=== PATIENT | male | born 1955 | race Caucasian/White ===

== ENCOUNTER 2018-01-04 09:00 | Inpatient (IN) ==
[2018-01-11] MEDS ORDERED: Chlorhexidine Gluconate 2% 1 Pack (2 Cloths) TOPICAL ONE (06:30)
[2018-01-11] MEDS ORDERED: Sodium Chlor 0.9% Inj 40 ML, Bupivacaine Liposo PF 1.3% Inj 20 ML P-ARTICULR SCH ×2 (06:30)
[2018-01-11] MEDS ORDERED: Metoprolol Tartrate 25 MG Tablet PO ONE (06:30)
[2018-01-11] MEDS ORDERED: Chlorhexidine 4% Topical 120 APPLIC/120 ML Bottle TOPICAL SCH (06:30)
[2018-01-11] MEDS ORDERED: Sodium Chlor 0.9% Inj 500 ML IV.CONT ONE (06:30)
[2018-01-11] MEDS ORDERED: Bupivacaine/Epinephrine Inj 0.25% 50 ML Vial ONE (06:51)
[2018-01-11] MEDS ORDERED: Tranexamic Acid Inj 925 MG in Sodium Chlor 0.9% Inj 100 ML IV.SIG SCH (07:00)
[2018-01-11] MEDS ORDERED: ceFAZolin 2 GM Premix Inj 2 GM/50 ML PIGGYBACK IV.SIG SCH (07:00)
[2018-01-11] MEDS ORDERED: Vancomycin Inj 1,000 MG in Sodium Chlor 0.9% Inj 250 ML IV.SIG SCH (07:00)
[2018-01-11] MEDS ORDERED: Lidocaine PF 1% Inj 5 ML Syringe OTHER ONE (07:25)
[2018-01-11] MEDS ORDERED: Glycopyrrolate Inj 1 MG/5 ML Syringe IV.PUSH ONE (07:25)
[2018-01-11] MEDS ORDERED: Ketorolac Inj 30 MG/ML (IVP) Vial IV.PUSH ONE (07:25)
[2018-01-11] MEDS ORDERED: Neostigmine Inj 5 MG/5 ML Syringe IV.PUSH ONE (07:25)
[2018-01-11] MEDS ORDERED: Morphine Inj 4 MG/ML Vial IV.PUSH PRN (07:43)
[2018-01-11] MEDS ORDERED: Post-op Orders (for Pharmacy) OTHER STA (07:43)
[2018-01-11] MEDS ORDERED: Bisacodyl 10 MG Supp RECTAL PRN (07:43)
--- NOTE | 2018-01-11 09:26 | XR ---
EXAM DATE: 01/11/2018 12:00 AM EDT AGE/SEX: 62 years / Male INDICATIONS: Left total hip replacement. CLINICAL DATA: This is the patient's initial encounter. Patient reports that signs and symptoms have been present for 1 day and indicates a pain score of Nonresponsive. MEDICAL/SURGICAL HISTORY: None. . Right total hip replacement. COMPARISON: No prior exams available for comparison. FINDINGS: 2 fluoroscopic images demonstrate left hip arthroplasty in place. The arthroplasty components appear well-positioned and in anatomic alignment. No gross bony fracture. CONCLUSION: 1. Left hip arthroplasty in anatomic alignment without fracture. Electronically signed by: Narinder Tucker MD 01/11/2018 9:25 AM EDT
--- NOTE | 2018-01-11 09:31 | P.OP ---
- Preoperative Diagnosis (1) Osteoarthritis of left hip - Postoperative Diagnosis (1) Osteoarthritis of left hip Date of procedure: 01/11/18 Procedure: Left total hip replacement arthroplasty, direct anterior exposure Anesthesia: GETA Surgeon: Arturo Allen MD Janitorial Assistant: TUTU Tuttle Operation and Findings: EBL: 500 cc INDICATION: This patient is a 62-year-old male with severe osteoarthritis of the left hip. Despite extensive conservative care, he continues to be painful and symptomatic. He now presents for surgical treatment NOTE: Meera Tuttle PA-C was present for the entire surgical procedure as my client services assistant. In my medical opinion her skill and care was necessary for the proper management of this patient. COMPONENTS: COMPANY: [employer] CUP: [place], 56 mm, 100 series STEM: [place], size 12, high offset HEAD: Ceramic, +8.5, 36 mm, 12/14 taper PLASTIC: Altrex, 36 mm, neutral PROCEDURE: This patient was brought to the operating room and anesthetized in the supine position. The patient was positioned on the [place] table with the operative leg extended and the contralateral leg held position. The hip and leg was scrubbed with alcohol followed by Hibiclens followed by ChloraPrep and draped sterilely in the clean air suite. Preoperative fluoroscopic images were utilized. A templating x-ray was obtained and printed to be used during the case. A timeout was done and antibiotics were given within a routine time window. A 4 inch incision was made starting 2 cm distal and 2 cm lateral to the anterior superior iliac spine. The tensor fascia allyson fascia was identified and opened longitudinally in line with the incision. Deep retraction allowed good visualization in the interval between the tensor fascia allyson and the rectus and this was opened further. The posterior fascia was opened. Crossing vessels were coagulated appropriately. The anterior aspect of the hip capsule was identified. Retractors were placed above and below the capsule. The capsule was opened longitudinally. Stay sutures were utilized creating flaps for the anterior capsule. The femoral neck was cut at the right location and completed with an oscillating saw. The head and neck was removed and taken to the back table. The leg was externally rotated 60 degrees and traction placed on the extremity. The labrum was excised. A portion of the capsule was excised. Visibility was excellent. Retractors were positioned. Starting 6 mm from the final size reamer, we began reaming up to 1 mm from the anticipated size. This was visualized under fluoroscopy. A trial cup was positioned. This also was visualized under fluoroscopy and minor adjustments were made. The final preparation with a 56 reamer was utilized. The final cup was positioned in approximately 40 degrees of abduction and 20 degrees of forward flexion. This is visualized under fluoroscopy and was seated into the final position. Position was very satisfactory. A single hole eliminator was positioned followed by the plastic liner. The final solution was excellent. Traction was let off. The leg was brought into neutral rotation. A lifting took was positioned underneath the greater trochanter and proximal femur. The leg was maximally X rotated and the foot drop to the floor across midline. Retractors were positioned. A box osteotome was used to gain entrance into the top of the femur. The canal was probed with a finder to ensure that we are within the canal. Successive broaching up to the final stem size was accomplished. Trial reduction showed excellent balancing. Adjustments were made. The wound was irrigated copiously and the canal irrigated. The final stem was inserted in proper orientation. Trial again was trialed and the final head side was impacted. The hip was reduced and with 60 degrees of external rotation the leg to be dropped to the floor without evidence of anterior subluxation. Intraoperative x-rays were obtained. Local anesthesia was utilized for a field block including posterior capsule, inferior capsule, cephalad capsule, region of the greater trochanter, tensor fascia allyson and subcutaneous tissue. The anterior capsule was repaired with interrupted #2 Tycron sutures. The fascia was run with 0 PDS on a loop. Subcutaneous tissue was approximated 2-0 Vicryl suture and skin with running intradermal 3-0 Vicryl followed by benzoin and Steri-Strips. A sterile dressing was applied. The patient was awakened and taken to the recovery room in satisfactory condition FINDINGS: There was severe osteoarthritis of the left hip. Final cup and stem position appeared to be very satisfactory. There was no complication that was appreciated
--- NOTE | 2018-01-11 09:35 | P.DCO ---
- Physical Therapy Physical Therapy: Gait training (3 times per week for 2 weeks) Hip: Total hip, Protocol: Left (Anterior total hip) Left Lower Extremity Weight Bearing: Weight bearing as tolerated - Nursing RN: 3 days/week x 2 weeks Nursing: Dressing changes (No dressing change unless saturated. If saturated, dry dressing change daily) Dressing changes: Do not change dressing - Certification Need for Home Health services: I have seen patient Tres Luu on 01/11/18. My clinical findings support the need for the requested home health care services because: Need for Home Health Services: Limited mobility due to disease progression Homebound Certification: I certify that my clinical findings support that this patient is homebound because: Homebound Certification: Unsteady gait/balance
--- NOTE | 2018-01-11 09:37 | P.DS ---
Date of admission: 01/11/18 05:37 Primary care physician: Jonnathan Macdonald Attending physician on discharge: Arturo Allen Anticipated date of discharge: 01/12/18 Brief History from admission: This patient is a 62-year-old white male with progressive osteoarthritis of the left hip. He has had a previous right total hip replacement done elsewhere and has done well. Despite conservative care outlined in the attached records including medications, physical therapy, altered activity, he continued to be painful and symptomatically he now presents for surgical treatment DS: Diagnosis - Discharge Diagnosis (1) Osteoarthritis of left hip Status: Acute DS: Medications - Discharge Medications Prescriptions: aspirin 81 mg PO BID #60 tab hydrocodone-acetaminophen 1 tab PO Q4H PRN #42 tab PRN Reason: Acute Pain DS: Summary Hospital Course: The patient was admitted electively. He had surgical treatment with a 500 cc blood loss. He was transferred to the recovery room and then to the floor. He progressed well through physical therapy. - Time Spent with Patient Total time spent providing and/or coordinating discharge services: Less than 30 minutes - Quality: VTE Deep Vein Thrombosis/Pulmonary Embolism Present on Admission: No Exam Vital signs: Vital Signs 01/11/18 06:35 Temperature 98.1 F Pulse Rate 72 Respiratory Rate 18 Blood Pressure 144/89 H Pulse Oximetry 96 Intake & Output 01/10/18 01/11/18 01/11/18 18:59 06:59 18:59 Intake Total 1409.25 / 1409.25 Output Total 500 / 500 Balance 909.25 / 909.25 Weight 92.5 kg Intake: IV 1409.25 / 1409.25 LR 1000 mL Inj 1,000 ML @ 30 1000 / 1000 mls/hr IV.CONT .Q24H ONE Rx#: [id number] Cyklokapron Inj 925 MG In NS 109.25 / 109.25 Inj 100 ML @ 200 mls/hr IV.SIG ONCE [facility]HZ[facility] Rx#:[id number] Vancomycin Inj 1,000 MG In NS 250 / 250 Inj 250 ML @ 250 mls/hr IV.SIG COFFEE ATTENDANT BEHZAD Rx#:[id number] Ancef 2 GM Premix Inj 2 gm In 50 / 50 50 ml @ 100 mls/hr IV.SIG COFFEE ATTENDANT BEHZAD Rx#:[id number] Output: Estimated Blood Loss 500 / 500 Other: Weight On Admission 92.5 kg Narrative: Dressing dry. Mild swelling. Altered sensation around the incision. Neuro exam normal. No calf tenderness or abnormal distal swelling Results Procedures completed during hospitalization: Left total hip replacement, direct anterior exposure Labs on day of discharge: Labs from last 24 hours 01/11/18 06:30 Blood Type B Positive Antibody Screen Negative MTS Gel Crossmatch See Detail Bld Prod Order Comment - Impressions ITS Impressions Hip X-Ray 01/11/18 00:00 CONCLUSION: 1. Left hip arthroplasty in anatomic alignment without fracture. Discharge Plan - Discharge Disposition Patient Disposition: /Home Health Service - Discharge Condition Condition: Good - Discharge Order Discharge Orders: Discharge Order (Routine); Ordered 01/11/18 Ordered By: Arturo Allen - Physicians Team Primary Care Provider: Jonnathan Macdonald Attending Provider: Arturo Allen - Rxs /Orders / Referrals /Forms Prescriptions: New aspirin 81 mg Tablet,Chewable 81 mg PO BID Qty: 60 RF: 0 hydrocodone-acetaminophen 7.5-325 mg Tablet 1 tab PO Q4H PRN (Reason: Acute Pain) Qty: 42 RF: 0 Continue tadalafil [Cialis] 2.5 mg Tablet 5 mg PO DAILY PRN (Reason: Erectile Dysfunction) Ambulatory Orders / Order Sets / DME: Adjustable Commode 3-in-1 (1 each) (Routine) Location: Determined by Patient Ordered By: Arturo Allen Walker With Front Wheels (1 each) (Routine) Location: Determined by Patient Ordered By: Arturo Allen Referrals: Jonnathan Macdonald [Primary Care Provider] - See Instructions
[2018-01-11] MEDS ORDERED: fentaNYL Citrate Inj 100 MCG/2 ML Ampul ONE (09:58)
[2018-01-11] MEDS ORDERED: HYDROmorphone PF Inj 2 MG/ML Vial ONE (10:04)
[2018-01-11] MEDS ORDERED: *HYDROmorphone PF Inj 1 MG/ML Ampul PERIprocedural Use ONLY ONE (12:33)
[2018-01-11] MEDS: Senna/Docusate Sodium 8.6/50 MG Tablet PO SCH (20:34)
[2018-01-11] MEDS: Multivitamin/Minerals Therapeutic Tablet PO SCH (20:35)
[2018-01-11] MEDS ORDERED: Temazepam 15 MG Capsule PO PRN (21:00)
[2018-01-12 07:04] LABS: Hematocrit 36.4 % (39.0-51.0)
--- NOTE | 2018-01-12 07:46 | P.PNOP ---
Subjective Interval history: Doing well. Pain well controlled. Very comfortable Physical Exam Vital signs: Vital Signs 01/11/18 09:48 01/11/18 10:00 01/11/18 10:15 Temperature 97.4 F L Pulse Rate 95 H 76 78 Respiratory Rate 15 15 17 Blood Pressure 127/78 133/74 127/74 Pulse Oximetry 92 L 97 99 01/11/18 10:30 01/11/18 11:00 01/11/18 12:00 Temperature Pulse Rate 85 80 82 Respiratory Rate 14 20 17 Blood Pressure 117/81 117/60 122/74 Pulse Oximetry 98 95 95 01/11/18 13:00 01/11/18 13:41 01/11/18 15:35 Temperature 98.6 F Pulse Rate 99 H 97 H 103 H Respiratory Rate 17 21 18 Blood Pressure 114/80 119/84 128/80 Pulse Oximetry 98 97 96 01/11/18 16:25 01/11/18 20:00 01/11/18 21:03 Temperature 97.5 F L 98.2 F Pulse Rate 91 H 83 Respiratory Rate 16 18 18 Blood Pressure 126/74 121/71 Pulse Oximetry 98 95 01/12/18 00:00 01/12/18 01:00 01/12/18 04:00 Temperature 97.9 F 97.6 F Pulse Rate 78 83 Respiratory Rate 18 18 18 Blood Pressure 128/65 123/65 Pulse Oximetry 94 L 96 01/12/18 05:45 Temperature Pulse Rate Respiratory Rate 18 Blood Pressure Pulse Oximetry Intake & Output 01/11/18 01/12/18 01/12/18 18:59 06:59 18:59 Intake Total 2449.25 / 2449.25 1800 / 1800 Output Total 1175 / 1175 2150 / 2150 Balance 1274.25 / 1274.25 -350 / -350 Weight 92.5 kg 101 kg Intake: IV 1509.25 / 1509.25 1200 / 1200 LR 1000 mL Inj 1,000 ML @ 80 1000 / 1000 1000 / 1000 mls/hr IV.CONT .[id number] [facility] Rx# :[id number] Cyklokapron Inj 925 MG In NS 109.25 / 109.25 Inj 100 ML @ 200 mls/hr IV.SIG ONCE BEHZAD Rx#:[id number] Vancomycin Inj 1,000 MG In NS 250 / 250 Inj 250 ML @ 250 mls/hr IV.SIG EYE SURGEON BEHZAD Rx#:[id number] Ancef 2 GM Premix Inj 2 gm In 50 / 50 50 ml @ 100 mls/hr IV.SIG EYE SURGEON BEHZAD Rx#:[id number] Ancef Inj 1,000 MG In NS Inj 100 / 100 200 / 200 100 ML @ 200 mls/hr IV.SIG Q6H BEHZAD Rx#:[id number] Oral 840 / 840 600 / 600 Anesthesia Amount 100 / 100 Output: Urine 675 / 675 2150 / 2150 Estimated Blood Loss 500 / 500 Other: Date of Last Bowel Movement 01/11/18 01/11/18 Narrative: Dressing dry. Mild swelling. Altered sensation around the incision. Neuro exam normal. No calf tenderness or abnormal distal swelling Results - Labs CBC & Chem 7: 01/12/18 06:10 Laboratory Results - last 24 hr 01/11/18 01/12/18 06:30 06:10 Hgb 13.0 Hct 36.4 L Blood Type B Positive Antibody Screen Negative MTS Gel Crossmatch See Detail Bld Prod Order Comment - Imaging Impressions Hip X-Ray 01/11/18 00:00 CONCLUSION: 1. Left hip arthroplasty in anatomic alignment without fracture. - Procedures Left total hip replacement, direct anterior exposure Assessment and Plan - Problem List (1) Osteoarthritis of left hip Code(s): M16.12 - Unilateral primary osteoarthritis, left hip Status: Acute - Assessment and Plan Osteoarthritis left hip. SURGERY: Left total hip replacement, direct anterior: POD #1 PLAN: Weightbearing as tolerated. Home with home health care and home PT. Walker. Bedside commode. Aspirin 81 mg twice daily for 30 days. [place] for pain. Discharge home. Follow-up in 2 weeks. Orthopedically stable
[2018-01-12] MEDS: Senna/Docusate Sodium 8.6/50 MG Tablet PO SCH (08:11)
[2018-01-12] MEDS: Multivitamin/Minerals Therapeutic Tablet PO SCH (08:11)
[2018-01-12 14:42] VITALS: BP 122/81; PULSE 101; RESP 16; TEMP 97.7; O2SAT 97
== END 2018-01-12 15:06 | disposition home health service (06) ==
LOC: HSDI 01-11 05:37 → N06 01-11 15:57
PROVIDERS: ADMIT Orthopaedic Surgery Orthopaedic Surgery of the Spine; ATTEND Orthopaedic Surgery Orthopaedic Surgery of the Spine